=== PATIENT | female | born 1995 | race Caucasian/White ===

== ENCOUNTER → 2023-06-24 | Outpatient (CLI) | payer MEDICARE, OTHER ==
--- NOTE | 2023-06-24 15:40 | Diagnostic Imaging Report ---
INDICATION: survey. TECHNIQUE: Multiple real-time grayscale images were obtained over the gravid uterus. COMPARISON: None FINDINGS: There is a single live fetus in a cephalic presentation. heart rate was recorded at 130 bpm. Placenta is posterior and low lying. The placental tip to the internal cervical os is 1.3 cm. Amniotic fluid index is 10.8 cm. kidneys, bladder and stomach are unremarkable. brain is unremarkable. There is a four-chamber heart. There is a three-vessel cord with normal insertion. spine is unremarkable. Biometrical measurements are as follows: Biparietal 4.77 cm, age 20 weeks 3 days. Head circumference 18.20 cm, age 20 weeks 5 days. Abdominal circumference 15.05 cm, age 20 weeks 3 days. Femur length 3.09 cm, age 19 weeks 5 days. Sonographic estimate age: 20 weeks 3 days. Sonographic estimated date of delivery: 11/08/2023. Estimated Weight: 328 gm (+/- 48 gm). LMP percentile: 39%. heart rate: 138 beats per minute. number: 1 of 1. IMPRESSION: Single live IUP 20 weeks 3 days gestational age. Estimated date of confinement sonographically is 11/08/2023. Note is made that the posterior placenta is low lying. Dictated by: Dictated on workstation # [id number]
== END ==
LOC: RAD 09:44
PROVIDERS: ATTEND Nurse Practitioner Women's Health
DX: Z36.9 Encounter for antenatal screening, unspecified (principal); Z34.02 Encounter for supervision of normal first pregnancy, second trimester; Z3A.20 20 weeks gestation of pregnancy
CPT/HCPCS: 76805